=== PATIENT | male | born 1985 ===

== ENCOUNTER 2021-12-31 13:22 | Emergency (ER) | payer MEDICAID, OTHER ==
[~2021-12-31] VITALS: Ht 170.2 cm; Wt 73.5 kg
[2021-12-31 13:43] VITALS: BP 127/99
[2021-12-31] MEDS ORDERED: KETOROLAC TROMETH 60MG/2ML VIAL IM ONE (15:00)
[2021-12-31] MEDS ORDERED: IPRATROPIUM BROM 0.5 MG/2.5ML INH SOL NEB ONE (15:00)
[2021-12-31] MEDS ORDERED: ALBUTEROL SULF 2.5 MG/0.5ML(0.5%) NEB SOLN NEB ONE (15:00)
[2021-12-31] MEDS ORDERED: ALBU108A5 IN (15:24)
[2021-12-31] MEDS ORDERED: TAM04C PO (15:24)
[2021-12-31] MEDS ORDERED: LACT10SO70 PO (15:24)
== END 2021-12-31 15:25 | disposition home or self-care (01) ==
LOC: ER 13:27
DX: K59.00 Constipation, unspecified (principal); N20.0 Calculus of kidney; J45.901 Unspecified asthma with (acute) exacerbation; F17.210 Nicotine dependence, cigarettes, uncomplicated
CPT/HCPCS: 74176; 94640; 96372; 99284; J1885; J7644